=== PATIENT | female | born 1995 | race Caucasian/White ===

== ENCOUNTER → 2020-01-05 09:45 | Outpatient (CLI) | payer OTHER, MEDICAID, SELFPAY ==
--- NOTE | 2020-01-05 09:48 | DI.US.S_ITS ---
PROCEDURE: US OB >= 14 WEEKS FETUS INDICATIONS: ANATOMY OUTSIDE/PRIOR DATING DATA: Last menstrual period (LMP): 08/22/19. LMP-based estimated date of delivery (DEION): 05/29/20. First dating scan (date and location): 10/27/19. Estimated date of delivery (DEION) from first dating scan: 06/06/20. TECHNIQUE: Real-time scanning was performed of the fetus, with image documentation and biometric measurements. COMPARISON: [facility], , OB <= 14 WEEKS FETUS, 11/09/2019, 8:26. FINDINGS: General: A single live intrauterine gestation is present. Presentation: Breech. Placenta: Placental position is anterior, without previa. However, the placenta is low-lying, with placental edge seen 2.1 cm from the internal cervical os. Amniotic fluid index: 12.7 cm, normal range is 5-24 cm. heart rate: 149 beats per minute. Maternal cervical canal: 3.4 cm long. Normal lower limit is 2.5 cm. biometrics: Biparietal diameter: 4.2 cm equals 18 weeks 5 days Head circumference: 15.4 cm equals 18 weeks 2 days Abdominal circumference: 12.2 cm equals 18 weeks 2 days Femur length: 2.5 cm equals 17 weeks 5 days Estimated gestational age from initial scan: 18 weeks 1 day Composite gestational age from present scan: 18 weeks 2 days Estimated weight and percentile: 221 g, 38 percentile Measurement variability for biometric dating: +/- 7 days from 14 weeks to 15 weeks 6 days gestation, +/- 10 days from 16 weeks to 21 weeks 6 days gestation, +/- 2 weeks from 22 weeks to 27 weeks 6 days gestation, +/- 3 weeks for 28 weeks gestation or later. weight reference: 4500 g or EFW >90/95% is considered macrosomia or large for gestational age. EFW <10% is small for gestational age. EFW 5% or less is considered intra-uterine growth restriction. Anatomic survey: Neuro: Ventricles are non-dilated at less than 10 mm. Cisterna magna is normal at 3-11 mm. Cerebellum is normal in size and morphology. Nuchal skin fold: Normal at less than 6 mm between 14-21 weeks gestational age. Face: Thefetal nose and lips are not well-seen. Spine: No evidence for spina bifida. Heart: 4-chambered heart is present, with normal ventricular outflow tracts. Diaphragm: Diaphragm is intact. Stomach: Left-sided stomach is present. Kidneys: No hydronephrosis. Normal is less than 5 mm in 2nd trimester, less than 7 mm in 3rd trimester. Cord: 3-vessel cord has orthotopic insertion. Bladder: Normal in size. Extremities: All 4 extremities identified. IMPRESSION: A single live intrauterine is seen. No significant discrepancy is found between the estimated gestational age based on these images and the estimated gestational age based upon the given prior dating. The nose and lips are not well-seen. No anatomic abnormalities are identified. Low-lying placenta, without previa, with the inferior aspect of the placenta is seen 2.1 cm from the internal cervical os. Dictated by: Danny Baum M.D. on 01/05/2020 at 10:14 Approved by: Danny Baum M.D. on 01/05/2020 at 10:17
== END ==
PROVIDERS: PCP Family Medicine; Referring Provider Obstetrics & Gynecology; Visit Provider Obstetrics & Gynecology
DX: Z36.89 Encounter for other specified antenatal screening (principal); Z3A.18 18 weeks gestation of pregnancy
CPT/HCPCS: 76811

== ENCOUNTER → 2020-01-06 09:03 | Outpatient (CLI) | payer OTHER, MEDICAID, SELFPAY ==
[2020-01-08 20:39] LABS: AFP, Serum 55.8 ng/mL (.); Calc Gestational Age Ultrasound (.); Estriol, Free 2.82 ng/mL (.); Inhibin A, Dimeric 147.64 pg/mL (.); Inhibin A, MoM 0.83 (.); Maternal Ethnicity Caucasian (.); Maternal Weight 137 lbs (.); Number of Fetuses No (.); OSBR Risk 1 IN 7137 (.); Results Report (.); Test Results *Screen Negative* (.); hCG, Serum 20573 mIU/mL (.)
== END ==
PROVIDERS: PCP Family Medicine; Referring Provider Family Medicine; Visit Provider Obstetrics & Gynecology
DX: Z34.02 Encounter for supervision of normal first pregnancy, second trimester (principal); Z3A.18 18 weeks gestation of pregnancy
CPT/HCPCS: 36415; 82105; 82677; 84702; 86336

== ENCOUNTER → 2020-01-20 07:15 | Outpatient (CLI) | payer OTHER, MEDICAID, SELFPAY ==
--- NOTE | 2020-01-20 07:17 | DI.US.S_ITS ---
PROCEDURE: US OB FOLLOW UP INDICATIONS: RE-EVALUATE FACE OUTSIDE/PRIOR DATING DATA: Last menstrual period (LMP): 08/22/19. LMP-based estimated date of delivery (DEION): 05/29/20. First dating scan (date and location): 10/27/19. Estimated date of delivery (DEION) from first dating scan: 06/06/20. TECHNIQUE: Real-time scanning was performed of the fetus, with image documentation. Endovaginal scanning: Performed COMPARISON: None. FINDINGS: A single living intrauterine gestation is present. Presentation: Breech Placenta: Placental position is anterior, without previa. Amniotic fluid index: 15.3 cm, normal range is 5-24 cm. heart rate: 152 beats per minute. Maternal cervical canal: 4.5 cm long. Normal lower limit is 2.5 cm. Estimated gestational age from initial scan: 20 weeks 2 days. face and profile normal. IMPRESSION: Normal face. Dictated by: Anny Flood MD, PhD on 01/22/2020 at 11:20 Approved by: Anny Flood MD, PhD on 01/22/2020 at 11:22
== END ==
PROVIDERS: PCP Family Medicine; Referring Provider Obstetrics & Gynecology; Visit Provider Obstetrics & Gynecology
DX: Z36.2 Encounter for other antenatal screening follow-up (principal); Z3A.20 20 weeks gestation of pregnancy
CPT/HCPCS: 76816

== ENCOUNTER → 2020-03-02 08:19 | Outpatient (CLI) | payer OTHER, SELFPAY ==
[2020-03-02 10:09] LABS: Hematocrit 29.3 % (36-46); Hemoglobin 10.2 g/dL (12.0-16.0)
[2020-03-02 10:47] LABS: GTT (PREG) 1 Hour PP 50gm Dose 99 mg/dL (76-139)
== END ==
PROVIDERS: PCP Family Medicine; Referring Provider Obstetrics & Gynecology; Visit Provider Obstetrics & Gynecology
DX: Z34.02 Encounter for supervision of normal first pregnancy, second trimester (principal); Z3A.22 22 weeks gestation of pregnancy
CPT/HCPCS: 36415; 82950; 85014; 85018; 86850

== ENCOUNTER → 2020-05-16 09:43 | Outpatient (CLI) | payer OTHER, MEDICAID, SELFPAY ==
[2020-05-16 14:40] LABS: Strep Grp B PCR NEG for Grp B Strep
== END ==
PROVIDERS: PCP Family Medicine; Visit Provider Obstetrics & Gynecology
DX: Z34.03 Encounter for supervision of normal first pregnancy, third trimester (principal); Z3A.28 28 weeks gestation of pregnancy
CPT/HCPCS: 87653

== ENCOUNTER 2020-06-06 08:23 | Outpatient (CLI) | payer OTHER, MEDICAID, SELFPAY ==
--- NOTE | 2020-06-06 09:05 | PM.OBTRLD ---
Visit Information Visit Information Date of evaluation: 06/06/20 Primary OB Provider: Celina Ko Reason for Evaluation: Yes non-stress test Comments/Additional reasons for admission: This patient is a 24yo @40+0 sent for an NST for postdates testing. Vital Signs Vital Signs: 130/85, HR 88 PFSH Medical History Acute low back pain without sciatica (Acute) Anxiety (Acute) Clavicle fracture (Acute) Leg fracture, left (Acute) Lumbar region somatic dysfunction (Acute) Pelvic somatic dysfunction (Acute) Right arm fracture (Acute) Sacral region somatic dysfunction (Acute) Surgical History [place] teeth extracted (Acute) Family History Mother No problems noted. Father Tonsillar cancer Grandfather No problems noted. Grandmother Type 2 diabetes mellitus Grandfather Unknown whether patient has any health problems Grandmother Hypertension Family/Other Infertility Social History marital status: unmarried,living together pets and animals: Yes (Dog and FOB has Cat (aware)) education level: college occupational status: employed current occupational exposures/hazards: No special regino needs: No Smoking Status: Never smoker second hand exposure: No alcohol intake: former substance use type: does not use Exam Const General: cooperative, healthy appearing and comfortable Evaluation Evaluation Baseline heart rate: 145 Variability: Moderate (11-25) monitor accelerations: Present monitor decelerations: Absent Category of Tracing: Reactive Diagnosis, Plan/Disposition Plan/Disposition Plan: Home, scheduled precautions and follow up for NST/BPP later this week. OB Disposition: home
== END 2020-06-06 09:10 | disposition home or self-care (01) ==
LOC: LABOR 09:03 → OB 06-07 15:03
PROVIDERS: PCP Family Medicine; Referring Provider Obstetrics & Gynecology; Visit Provider Obstetrics & Gynecology
DX: O48.0 Post-term pregnancy (principal); Z3A.40 40 weeks gestation of pregnancy
CPT/HCPCS: 59025; G0378; G0379

== ENCOUNTER 2020-06-09 15:15 | Outpatient (CLI) | payer OTHER, MEDICAID, SELFPAY | END 2020-06-09 15:40 | disposition home or self-care (01) | LOC: OB 06-13 09:40 | PROVIDERS: PCP Family Medicine; Referring Provider Obstetrics & Gynecology; Visit Provider Obstetrics & Gynecology | DX: O48.0 Post-term pregnancy (principal); Z3A.40 40 weeks gestation of pregnancy | CPT/HCPCS: 59025; G0378; G0379 ==

== ENCOUNTER → 2020-06-10 08:09 | Outpatient (CLI) | payer OTHER, MEDICAID, SELFPAY ==
[2020-06-13 10:02] LABS: COVID19 Sendout Not Detected (Not Detect)
== END ==
PROVIDERS: PCP Family Medicine; Visit Provider Nurse Practitioner
DX: Z11.59 Encounter for screening for other viral diseases (principal)
CPT/HCPCS: 87635

== ENCOUNTER 2020-06-13 18:25 | Inpatient (IN) | payer OTHER, MEDICAID, SELFPAY ==
[2020-06-13 18:55] VITALS: BP 134/89
[2020-06-14 00:18] LABS: Add Manual Diff / Slide Review NO; Basophils Absolute Auto 0 /uL (0-100); Basophils Percent Auto 0.1 % (0-2); Eosinophils Absolute Auto 0 /uL (0-450); Eosinophils Percent Auto 0.2 % (2-4); Hematocrit 32.1 % (36-46); Hemoglobin 11.1 g/dL (12.0-16.0); Lymphocytes Absolute Auto 3100 /uL (1100-4500); Lymphocytes Percent Auto 25.7 % (25-40); Mean Corpuscular HGB Conc 34.7 % (30-36); Mean Corpuscular Hemoglobin 30.7 PG (26-34); Mean Corpuscular Volume 88.4 fL (80-100); Monocytes Absolute Auto 600 /uL (0-900); Monocytes Percent Auto 5.2 % (3-14); Neutrophils Absolute Auto 8300 /uL (1500-7000); Neutrophils Percent Auto 68.8 % (50-75); Platelet Count 190 X10^3/uL (150-400); Red Blood Cell Count 3.63 X10^6/uL (4.0-5.2); Red Cell Distribution Width 13.3 % (11.6-14.8)
[2020-06-14] MEDS: DINOPROSTONE VAG (CERVIDIL) 10 MG VAG (01:10)
--- NOTE | 2020-06-14 09:39 | P.HPOB_ITS ---
OB HPI Date/Time Date of admission: 06/13/20 Date Patient Seen: 06/14/20 Time Patient Seen: 08:30 History of Present Condition Chief complaint: : 1 Para: 0 Estimated Date of Delivery: 06/06/20 Estimated Gestational Age (weeks): 41 Narrative: Cassy Urena is a 24 year old @41+1 admitted for postdates induction. The patient was admitted overnight for cervical ripening with cervidil, and was transitioned to pitocin when she achieved a favorable cervix this AM. Her has been uncomplicated. Of note, the patient is RH negative, but reports that paternity is certain and the FOB's blood type is certain, and refused rhogam. Indications Indication for induction OB: post dates History of Present care: good care, initiated at week # (8) and number of visits (16) Dating criteria: LMP confirmed by 1st trimester US Ultrasounds: normal 1st trimester US and normal mid trimester US Obstetrical complications: none Medical complications: none Preadmission Labs Blood type: A (-) negative -: Antibody screen: negative, GBS status: negative, HBsAG: negative, HIV: negative and RPR/VDLR: negative -: Chlamydia screen: not detected and Gonorrhea screen: not detected -: Rubella: immune and Varicella: immune Quad screen: Normal 1 hr GTT: 99 Evaluation Evaluation Baseline heart rate: 135 Variability: Moderate (11-25) monitor accelerations: Present monitor decelerations: Absent Category of Tracing: Reactive Cervical dilation (cm): 3 Cervical effacement (%): 75 station: -2 Laboratory results: Laboratory Tests 06/13/20 06/13/20 23:50 23:50 WBC 12.0 H RBC 3.63 L Hgb 11.1 L Hct 32.1 L MCV 88.4 MCH 30.7 MCHC 34.7 RDW 13.3 Plt Count 190 Neut % (Auto) 68.8 Lymph % (Auto) 25.7 [place] % (Auto) 5.2 Eos % (Auto) 0.2 L Baso % (Auto) 0.1 Neut # (Auto) 8300 H Lymph # (Auto) 3100 [place] # (Auto) 600 Eos # (Auto) 0 Baso # (Auto) 0 Blood Type A Negative Antibody Screen Negative [facility] Medical History Acute low back pain without sciatica (Acute) Anxiety (Acute) Clavicle fracture (Acute) Leg fracture, left (Acute) Lumbar region somatic dysfunction (Acute) Pelvic somatic dysfunction (Acute) Right arm fracture (Acute) Sacral region somatic dysfunction (Acute) Surgical History [place] teeth extracted (Acute) Family History Mother No problems noted. Father Tonsillar cancer Grandfather No problems noted. Grandmother Type 2 diabetes mellitus Grandfather Unknown whether patient has any health problems Grandmother Hypertension Family/Other Infertility Social History marital status: unmarried,living together pets and animals: Yes (Dog and FOB has Cat (aware)) education level: college occupational status: employed current occupational exposures/hazards: No special regino needs: No Smoking Status: Never smoker second hand exposure: No alcohol intake: former substance use type: does not use Meds Home Medications and Allergies Home Medications Medication Instructions Recorded Confirmed Type prenat.vits,jens,kpw-vcst-nanus 1 tab PO DAILY 11/02/19 06/13/20 History Double Electric breast Pump and #1 each 04/18/20 05/16/20 Rx Supplies Slow Fe 1 tab PO DAILY 06/06/20 06/06/20 History Allergies Allergy/AdvReac Type Severity Reaction Status Date / Time Sulfa (Sulfonamide Allergy Hives Verified 06/10/20 08:38 Antibiotics) Review of Systems Constitutional Constitutional: Reports system reviewed and no additional complaints, except as documented Cardiovascular Cardiovascular: Reports system reviewed and no additional complaints, except as documented Respiratory Respiratory: Reports system reviewed and no additional complaints, except as documented Gastrointestinal Gastrointestinal: Reports system reviewed and no additional complaints, except as documented Genitourinary Genitourinary: Reports system reviewed and no additional complaints, except as documented Neurologic Neurologic: Reports system reviewed and no additional complaints, except as documented Exam Vital Signs (past 8 hours): 135/77, HR 77 Const General: cooperative, healthy appearing and comfortable GI Palpation: soft and No tender External Female Exam: normal external appearance Skin General: no rashes or lesions noted Objective Labs Result Diagrams: 06/13/20 23:50 Labs: Laboratory Results - last 24 hr 06/13/20 06/13/20 23:50 23:50 WBC 12.0 H RBC 3.63 L Hgb 11.1 L Hct 32.1 L MCV 88.4 MCH 30.7 MCHC 34.7 RDW 13.3 Plt Count 190 Neut % (Auto) 68.8 Lymph % (Auto) 25.7 [place] % (Auto) 5.2 Eos % (Auto) 0.2 L Baso % (Auto) 0.1 Neut # (Auto) 8300 H Lymph # (Auto) 3100 [place] # (Auto) 600 Eos # (Auto) 0 Baso # (Auto) 0 Blood Type A Negative Antibody Screen Negative Assessment and Plan Assessment and Plan Assessment and Plan narrative: This patient is admitted for induction of labor for postdates. She will be induced with pitocin per the usual protocol. - pit per protocol - cEFM, toco - AROM when feasible - epidural on demand
[2020-06-14] MEDS: LACTATED RINGERS 1,000 ML 100 ML IV ×2 (10:30→13:24)
[2020-06-14] MEDS: OXYTOCIN PREMIX 30 UNIT/500 ML PLAST..BAG IV (10:35)
--- NOTE | 2020-06-14 14:04 | PM.OBPNLAB ---
Date/Time Date Patient Seen: 06/14/20 Time Patient Seen: 13:30 Pain Control Pain control: epidural Pelvic Exam Dilation (cm): 4 Effacement (%): 100 station: -1 Amniotic membrane status: Ruptured (AROM, clear) Contractions Pitocin rate (mU/min): 9 Contraction frequency (min): 3 Contraction duration (min): 1 Contraction pattern: Regular Status status: Category l Heart Rate Baseline: 135 Monitor Accelerations: Present Monitor Decelerations: Absent Monitor Variability: Moderate Comments: VSS Assessment and Plan Assessment: induction ongoing Plan: continuous present management
--- NOTE | 2020-06-14 17:53 | PM.OBPNLAB ---
Date/Time Date Patient Seen: 06/14/20 Time Patient Seen: 17:53 Pain Control Pain control: epidural Pelvic Exam Dilation (cm): 8 Effacement (%): 100 station: -1 Amniotic membrane status: Ruptured (AROM, clear) Comments: edematous anterior lip Contractions Pitocin rate (mU/min): 10 Contraction frequency (min): 2 Contraction pattern: Regular Status status: Category l Heart Rate Baseline: 145 Monitor Accelerations: Present Monitor Decelerations: Absent Monitor Variability: Moderate Assessment and Plan Assessment: induction ongoing Plan: continuous present management
--- NOTE | 2020-06-14 21:21 | PM.OBPRVD ---
Labor & Delivery Delivery date: 06/14/20 Intrapartal events: Acceleration and Deceleration Cervical ripening method: per Cervidil protocol Induction method: per pitocin protocol Delivery augmentation: rupture of membranes Delivery monitor: external FHT and external uterine Route of delivery: L&D Laceration Description: Perineal - 2nd Degree Delivery repair: vicryl Estimated blood loss (mL): 400 Anesthesia type: Epidural Narrative: This patient is a [id number] who presented for induction of labor for postdates. She underwent cervical ripening with cervidil and induction with pitocin. She progressed to fully dilated 6 hours after AROM, and was delivered of a healthy baby girl after a 1 hour second stage. There was no nuchal cord, and the shoulders delivered with ease. The placenta delivered spontaneously and intact shortly thereafter, with a 3 vessel cord. A stellate but 2nd degree perineal laceration was repaired with 3-0 vicryl in the usual fashion. The patient had persistent moderate lochia in the setting of lower uterine segment atony, and received 1000mcg of rectal cytotec. There were no other intrapartum or immediate complications. Apgars were 8+9, weight 8#7.9 oz. [place] Baby 1: gender: Female Presentation: vertex position: Right Occiput Anterior cord vessel description: 3 Vessels score (1 min): 8 score (5 min): 9 Plan for aftercare: Routine care.
[2020-06-15] MEDS: DERMOPLAST SPRAY 20% 60 ML 1 SPRAY TOP (00:45)
[2020-06-15] MEDS: LANOLIN OINT 7 GM 1 APPLIC TOP ×2 (00:46→13:17)
[2020-06-15] MEDS: IBUPROFEN 600 MG TABLET PO ×3 (00:46→13:17)
[2020-06-15] MEDS: miSOPROStoL 200 MCG TABLET 1000 MCG PR (07:43)
--- NOTE | 2020-06-15 09:00 | PM.OBDS.1 ---
Discharge Providers Provider Date of admission: 06/13/20 18:25 Discharge Date: 06/15/20 Primary care physician: Maury Sarah MD Consults: 06/15/20 21:20 Consult to Medical Office Professional Instructor Routine Comment: Discharge provider: Celina Ko MD Summary Hospital Course Date Patient Seen: 06/15/20 Time Patient Seen: 09:00 Procedures: Hospital Course: This patient presented for induction of labor for postdates. She underwent cervical ripening with cervidil and induction with pitocin, and progressed to fully dilated. After a 1 hour 2nd stage, she was delivered of a healthy baby girl, weight 8#8, without complications. Her course was uncomplicated, and she was discharged on PPD#1. Peripartum Data Infant Delivery Method: Natural Vaginal Laceration Description: Perineal - 2nd Degree Procedures: complications: none [place] 1: Gender: Female Disposition of : home Status at Discharge Cognitive/behavioral status at discharge: oriented Functional status at discharge: independent ambulation Overall status at discharge: patient is progressing back to baseline Time Spent with Patient Time attestation: Total time spent providing and/or coordinating discharge services: Time spent: Less than 30 minutes Objective Labs Result Diagrams: 06/13/20 23:50 Exam Vital Signs (past 8 hours): 124/83, HR 71 Narrative Exam Narrative: Patient recovering well this AM, ambulating, voiding, passing flatus, good pain control, tolerating PO, moderate lochia. Denies FERNANDEZ, visual changes, chest pain, SOB, RUQ pain. Const General: cooperative, healthy appearing and comfortable Resp Effort & Inspection: normal respiratory effort Auscultation: clear to auscultation bilaterally Cardio Rate: regular rate Rhythm: regular rhythm GI Palpation: soft and No tender Other: fundus firm, well below u External Female Exam: normal external appearance Extrem General: normal to inspection Discharge Plan Discharge Plan Patient Disposition: Home Discharge orders & Medications Prescriptions: Continued (DME) Double Electric breast Pump and Supplies See Rx Instructions .ROUTE .MEDSUPPLY Qty: 1 RF: 0 prenat.vits,jens,qcg-wdcp-aqmcp Tablet 1 tab PO DAILY RF: 0 Slow Fe 1 tab PO DAILY RF: 0 Follow up/Referrals: Celina Ko MD [Physician] - 6 Weeks Maury Sarah MD [Primary Care Provider] - Diet/Activity/Treatments Diet: Regular Activity: Nothing in the vagina for 6 weeks. Avoid heavy lifting for 6 weeks. If you develop increasing bleeding, fevers, chills, nausea, vomiting, headaches, visual changes, or any other symptoms, call or come to the ED. Skin/Wound/Dressing Care Report to your healthcare provider any signs of infection, such as:: chills, fever, night sweats, increased pain, unusual drainage and unusual redness Visit Report/Discharge Packet Instructions: DI for Labor and Delivery, Vaginal Discharge Data Primary Care Provider: Maury Sarah
[2020-06-15] MEDS: MEASLES,MUMPS,RUBELLA VACC/PF 0.5 ML VIAL SUBCUT (16:12)
[2020-06-15 16:57] VITALS: BP 122/73; PULSE 83; RESP 14; TEMP 36.8
== END 2020-06-15 18:10 | disposition home or self-care (01) | DRG 560 ==
PROVIDERS: Admitting Provider Obstetrics & Gynecology; PCP Family Medicine; Referring Provider Obstetrics & Gynecology; Visit Provider Obstetrics & Gynecology
DX: O48.0 Post-term pregnancy (principal); O70.1 Second degree perineal laceration during delivery; Z3A.41 41 weeks gestation of pregnancy; Z37.0 Single live birth
CPT/HCPCS: 01967; 59050; 59409; 85025; 86850; 86900; 86901; G0379; J2590; S0191

== ENCOUNTER → 2021-07-12 09:48 | Outpatient (CLI) | payer OTHER, MEDICAID, SELFPAY ==
--- NOTE | 2021-07-12 09:49 | DI.US.S_ITS ---
PROCEDURE: US PELVIC COMPLETE INDICATIONS: PELVIC PAIN TECHNIQUE: Real-time scanning was performed of the pelvic organs, with image documentation. Additional endovaginal scanning was necessary due to incomplete visualization of the adnexal and endometrial structures by transabdominal scanning. COMPARISON: None. FINDINGS: Uterus: Uterus is normal in size at 6.8 x 4.9 x 3.8 cm. The endometrium measures 5.1 mm in combined thickness. Ovaries: Right ovary measures 4.5 x 2.3 x 2.1 cm. Left ovary measures 2.9 x 2.5 x 2.0 cm. Multiple small bilateral physiologic cysts. Intra-ovarian flow noted bilaterally by duplex. No abnormal adnexal masses. Other: No pathologic free abdominal or pelvic fluid. IMPRESSION: Unremarkable pelvic ultrasound. Dictated by: Bradly Ortega M.D. on 07/12/2021 at 14:24 Approved by: Bradly Ortega M.D. on 07/12/2021 at 14:26
== END ==
PROVIDERS: Referring Provider Specialist; Visit Provider Specialist
DX: R10.2 Pelvic and perineal pain (principal)
CPT/HCPCS: 76830; 76856

== ENCOUNTER → 2021-08-18 16:30 | Outpatient (CLI) | payer OTHER, MEDICAID, SELFPAY ==
[2021-08-18 18:38] LABS: Thyroid Stimulating Hormone 1.29 uIU/mL (0.47-4.68)
== END ==
PROVIDERS: Referring Provider Obstetrics & Gynecology; Visit Provider Obstetrics & Gynecology
DX: N92.0 Excessive and frequent menstruation with regular cycle (principal)
CPT/HCPCS: 36415; 84439; 84443

== ENCOUNTER → 2023-02-05 10:21 | Outpatient (CLI) | payer OTHER, MEDICAID, SELFPAY ==
--- NOTE | 2023-02-05 | DI.US.S_ITS ---
PROCEDURE: US OB >= 14 WEEKS FETUS INDICATIONS: 20WK ANATOMY SCAN OUTSIDE/PRIOR DATING DATA: Last menstrual period (LMP): September 30, 2022. LMP-based estimated date of delivery (DEION): June 27, 2023. TECHNIQUE: Real-time scanning was performed of the fetus, with image documentation and biometric measurements. COMPARISON: [facility], US, OB >= 14 WEEKS FETUS, 06/09/2020, 14:55. FINDINGS: General: A single living intrauterine gestation is present. Presentation: Breech. Placenta: Placental position is anterior, without previa. Amniotic fluid index: 15.8 cm, normal range is 5-24 cm. Single deepest vertical pocket is 4.3 cm. heart rate: 143 beats per minute. Maternal cervical canal: 4.0 cm long. Normal lower limit is 2.5 cm. biometrics: Biparietal diameter: 4.5 cm, 19 weeks, 4 days Head circumference: 19.3 cm, 19 weeks, 6 days Abdominal circumference: 15.2 cm, 20 weeks, 3 days Femur length: 3.0 cm, 19 weeks, 2 days Clinically estimated gestational age: 19 weeks, 5 days Composite gestational age from present scan: 19 weeks, 6 days Estimated weight and percentile: 316 g, 53% Anatomic survey: Neuro: Ventricles are non-dilated at less than 10 mm. Cisterna magna is normal at 3-11 mm. Cerebellum is normal in size and morphology. Nuchal skin fold: Normal at less than 6 mm between 14-21 weeks gestational age. Face: Nose and lips have a normal sonographic appearance. The facial profile is not visualized. Spine: No evidence for spina bifida. Heart: 4-chambered heart is present, with normal ventricular outflow tracts. Diaphragm: Diaphragm is intact. Stomach: Left-sided stomach is present. Kidneys: No hydronephrosis. Normal is less than 5 mm in 2nd trimester, less than 7 mm in 3rd trimester. Cord: 3-vessel cord has orthotopic insertion. Bladder: Normal in size. Extremities: All 4 extremities identified. IMPRESSION: 1. Single live intrauterine gestation in breech position with a composite gestational age of 19 weeks, 6 days which is concordant with dates by initial scan. 2. profile not well visualized due to lie. No other sonographic anatomic abnormalities. We strive to produce accurate, complete, and clear reports of imaging services. To assist us in improving patient care, this report was composed using standard report templates and voice recognition software. Therefore, it may contain abnormal punctuation, insertions and/or omissions. Occasional wrong-word or sound-alike substitutions may occur. Though we review the report and make efforts to correct it, we do recommend that the report be read carefully in proper context to recognize any text inaccuracies. Dictated by: Ariela Woody M.D. on 02/05/2023 at 14:02 Approved by: Ariela Woody M.D. on 02/05/2023 at 14:13
== END ==
PROVIDERS: Referring Provider Nurse Practitioner Obstetrics & Gynecology; Visit Provider Nurse Practitioner Obstetrics & Gynecology
DX: Z34.92 Encounter for supervision of normal pregnancy, unspecified, second trimester (principal); Z3A.20 20 weeks gestation of pregnancy
CPT/HCPCS: 76811

== ENCOUNTER → 2023-02-19 10:20 | Outpatient (CLI) | payer OTHER, MEDICAID, SELFPAY ==
--- NOTE | 2023-02-19 | DI.US.S_ITS ---
PROCEDURE: US OB FOLLOW UP INDICATIONS: FOLLOW UP PROFILE OUTSIDE/PRIOR DATING DATA: Last menstrual period (LMP): 09/20/22. LMP-based estimated date of delivery (DEION): 06/27/23. First dating scan (date and location): 02/05/23. Estimated date of delivery (DEION) from first dating scan: 06/26/23. The calculations are made using the working DEION of 06/27/23. TECHNIQUE: Real-time scanning was performed of the fetus, with image documentation. Endovaginal scanning: Not performed COMPARISON: [facility], OB >= 14 WEEKS FETUS, 02/05/2023, 10:30. [facility], OB FOLLOW UP, 01/20/2020, 7:32. FINDINGS: A single living intrauterine gestation is present. Presentation: Variable, spine up. Placenta: Placental position is anterior, without previa. Amniotic fluid index: 16.6 cm, normal range is 5-24 cm. Single deepest vertical pocket is 6.1 cm. heart rate: 139 beats per minute. Maternal cervical canal: Closed and 3.4 cm long. Normal lower limit is 2.5 cm. Clinically estimated gestational age: 21 weeks five days facial profile was again not seen secondary to position. IMPRESSION: 1. Single living intrauterine in spine up position. 2. There is lack of good acoustic window in the facial profile of the fetus was again not seen. Consider follow-up. Dictated by: Roselyn Sapp M.D. on 02/19/2023 at 14:45 Approved by: Roselyn Sapp M.D. on 02/19/2023 at 14:48
== END ==
PROVIDERS: Referring Provider Nurse Practitioner Obstetrics & Gynecology; Visit Provider Nurse Practitioner Obstetrics & Gynecology
DX: Z36.2 Encounter for other antenatal screening follow-up (principal); O35.9XX0 Maternal care for (suspected) fetal abnormality and damage, unspecified, not applicable or unspecified; Z3A.21 21 weeks gestation of pregnancy
CPT/HCPCS: 76816

== ENCOUNTER → 2023-02-28 08:00 | Outpatient (CLI) | payer OTHER, MEDICAID, SELFPAY ==
--- NOTE | 2023-02-28 | DI.US.S_ITS ---
PROCEDURE: US OB FOLLOW UP INDICATIONS: FOLLOW UP PROFILE NOT WELL SEEN ON PRIOR EXAMS OUTSIDE/PRIOR DATING DATA: Last menstrual period (LMP): 09/30/2022. LMP-based estimated date of delivery (DEION): 06/27/2023. First dating scan (date and location): 02/05/2023. Estimated date of delivery (DEION) from first dating scan: 06/26/2023. The calculations are made using the clinical DEION of 06/27/2023. TECHNIQUE: Real-time scanning was performed of the fetus, with image documentation and biometric measurements. Endovaginal scanning: Not performed. COMPARISON: [facility], OB FOLLOW UP, 02/19/2023, 10:42. FINDINGS: General: A single living intrauterine gestation is present. Presentation: Vertex. Placenta: Placental position is anterior , without previa. Amniotic fluid index: 14.9 cm, normal range is 5-24 cm. Single deepest vertical pocket is 4.2 cm. heart rate: 147 beats per minute. Maternal cervical canal: 3.3 cm long. Normal lower limit is 2.5 cm. Anatomic survey: Nose and lips, facial profile are normal. IMPRESSION: Single living intrauterine at 23 weeks 0 days, DEION of 06/27/2023. Normal facial profile on today's exam. We strive to produce accurate, complete, and clear reports of imaging services. To assist us in improving patient care, this report was composed using standard report templates and voice recognition software. Therefore, it may contain abnormal punctuation, insertions and/or omissions. Occasional wrong-word or sound-alike substitutions may occur. Though we review the report and make efforts to correct it, we do recommend that the report be read carefully in proper context to recognize any text inaccuracies. Dictated by: Osmani Patton M.D. on 02/28/2023 at 15:58 Approved by: Osmani Patton M.D. on 02/28/2023 at 16:02
== END ==
PROVIDERS: PCP Nurse Practitioner Obstetrics & Gynecology; Referring Provider Nurse Practitioner Obstetrics & Gynecology; Visit Provider Nurse Practitioner Obstetrics & Gynecology
DX: Z3A.23 23 weeks gestation of pregnancy; Z36.2 Encounter for other antenatal screening follow-up
CPT/HCPCS: 76816

== ENCOUNTER → 2023-04-26 16:13 | Outpatient (CLI) | payer OTHER, MEDICAID, SELFPAY ==
[2023-04-26 17:36] LABS: HEMOLYSIS < 15 (0-50); Iron 215 ug/dL (37-170)
[2023-04-26 17:47] LABS: Percent Iron Saturation 41 % (15-50); Total Iron Binding Capacity 520 ug/dL (265-497); Transferrin 408 mg/dL (206-381)
== END ==
PROVIDERS: PCP Family Medicine; Referring Provider Obstetrics & Gynecology; Visit Provider Obstetrics & Gynecology
DX: O99.019 Anemia complicating pregnancy, unspecified trimester (principal); Z3A.00 Weeks of gestation of pregnancy not specified
CPT/HCPCS: 36415; 83540; 83550; 85045

== ENCOUNTER → 2023-05-29 11:59 | Outpatient (CLI) | payer OTHER, MEDICAID, SELFPAY ==
[2023-05-30 13:39] LABS: Strep Grp B PCR NEG for Grp B Strep
== END ==
PROVIDERS: PCP Family Medicine; Visit Provider Specialist
DX: Z34.83 Encounter for supervision of other normal pregnancy, third trimester (principal); Z3A.35 35 weeks gestation of pregnancy
CPT/HCPCS: 87653

== ENCOUNTER 2023-07-01 11:28 | Outpatient (CLI) | payer OTHER, MEDICAID, SELFPAY | END 2023-07-01 12:35 | disposition home or self-care (01) | LOC: LABOR 11:46 → OB 07-02 12:09 | PROVIDERS: PCP Family Medicine; Referring Provider Obstetrics & Gynecology; Visit Provider Obstetrics & Gynecology | DX: O48.0 Post-term pregnancy (principal); O47.1 False labor at or after 37 completed weeks of gestation; Z3A.40 40 weeks gestation of pregnancy | CPT/HCPCS: 59025; G0378; G0379 ==

== ENCOUNTER 2023-07-03 07:02 | Inpatient (IN) | payer OTHER, MEDICAID, SELFPAY ==
[2023-07-03 08:03] LABS: Add Manual Diff / Slide Review NO; Basophils Absolute Auto 0 /uL (0-100); Basophils Percent Auto 0.3 % (0-2); Eosinophils Absolute Auto 0 /uL (0-450); Eosinophils Percent Auto 0.4 % (2-4); Hematocrit 31.1 % (36-46); Hemoglobin 10.7 g/dL (12.0-16.0); Lymphocytes Absolute Auto 2800 /uL (1100-4500); Mean Corpuscular HGB Conc 34.4 % (30-36); Mean Corpuscular Hemoglobin 29.6 PG (26-34); Mean Corpuscular Volume 86.2 fL (80-100); Monocytes Absolute Auto 600 /uL (0-900); Monocytes Percent Auto 5.6 % (3-14); Neutrophils Absolute Auto 6800 /uL (1500-7000); Neutrophils Percent Auto 66.7 % (50-75); Platelet Count 253 X10^3/uL (150-400); Red Blood Cell Count 3.61 X10^6/uL (4.0-5.2); Red Cell Distribution Width 14.2 % (11.6-14.8); White Blood Cell Count 10.2 X10^3/uL (4.5-11.0)
[2023-07-03 08:30] VITALS: BP 134/67
[2023-07-03 08:35] VITALS: BP 134/79
--- NOTE | 2023-07-03 09:00 | PM.OBHP.1 ---
OB HPI Date/Time Date of admission: 07/03/23 Date Patient Seen: 07/03/23 Time Patient Seen: 09:01 History of Present Condition Chief complaint: IUP, 40+6 wks EGA, Rh NEG, GBS NEG : 3 Para: 1 Estimated Date of Delivery: 06/27/23 Estimated Gestational Age (weeks): 40+6 Narrative: Cassy Urena is a 27 year old , admitted for induction due to post-dates now at 40+ 6 weeks gestational age. Her course has been uncomplicated with solid early dating and appropriate milestones throughout. She is Rh negative and has received RhoGAM at 28 weeks during this . She has a history of hemorrhage with her prior delivery. She is GBS negative. Indications Indication for induction OB: post dates History of Present care: good care Dating criteria: LMP confirmed by 1st trimester US Ultrasounds: normal 1st trimester US and normal mid trimester US Obstetrical complications: none Medical complications: none Preadmission Labs Blood type: A (-) negative -: Antibody screen: negative, GBS status: negative, HBsAG: negative, HIV: negative and RPR/VDLR: negative -: Chlamydia screen: not detected and Gonorrhea screen: not detected -: Rubella: immune and Varicella: immune HCT: 31.1 HCAB: negative PAP: Normal Quad screen: Normal (AFP testing negative) Cell-free DNA: Low risk female 1 hr GTT: 99 Prior (ies) History: x 1 complicated by PPH Evaluation Evaluation Baseline heart rate: 145 Variability: Moderate (11-25) monitor accelerations: Present Monitor Decelerations: Episodic and Variable Contraction Frequency (minutes): 5 Uterine Contraction Intensity: Mild Category of Tracing: Reactive Status: Category l Dilation (cm): 2 Effacement (%): 80 Dilation: 1-2 cm Effacement: >/=80% station: +1 Position of cervix: mid Consistency: soft Scanlon score: 10 PFSH Medical History (Updated 06/27/23 @ 13:20 by Jordan Mg MD) Heavy menstrual bleeding Pelvic somatic dysfunction Sacral region somatic dysfunction Lumbar region somatic dysfunction Acute low back pain without sciatica Anxiety Leg fracture, left Right arm fracture Clavicle fracture Surgical History [employer] teeth extracted Family History (Updated 04/24/23 @ 10:17 by Layla Mitchell RN) Mother No problems noted. 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) special regino needs: No travel history: over 6 months ago seatbelt use: always helmet use: Yes water heater temp set < 120 deg: Yes working smoke detector in home: Yes fire extinguisher in home: Yes carbon monox detector in home: Yes firearms in home: Yes firearms unloaded and locked: Yes do you feel safe at home: Yes Smoking Status: Never smoker second hand exposure: No alcohol intake: former substance use type: does not use during the past year weight has: other well-balanced diet: daily or most days daily servings fruits/ve or more times/day caffeine: Yes (1 cup coffee in AM ) Type(s) of exercise: walking and bicycling Meds Home Medications and Allergies Home Medications Medication Instructions Recorded Confirmed Type calcium carbonate 200 mg calcium 200 mg PO QID 04/24/23 07/01/23 History (500 mg) chewable tablet (Tums) carica papaya tab PO DAILY 04/24/23 07/01/23 History ferrous gluconate 225 mg (27 mg 225 mg PO DAILY 04/24/23 07/01/23 History iron) tablet (Fergon) vitamin-ferrous sulfate tab PO 04/24/23 07/01/23 History 27 mg iron-folic acid 0.8 mg tablet Allergies Allergy/AdvReac Type Severity Reaction Status Date / Time Sulfa (Sulfonamide Allergy Hives Verified 07/01/23 10:55 Antibiotics) OB Exam Vital signs Blood Pressure: 126/67 Pulse Rate: 87 Temperature: 97.9 F HENMT Head: normal to inspection, normocephalic and atraumatic Eyes General: appearance normal, both eyes and all related structures Resp Effort & Inspection: normal respiratory effort and able to speak in complete sentences Uterus Location (Fundal Height): 35 Presentation: vertex Estimated Weight (lbs): 7 Objective Labs 07/03/23 07:30 Labs: Laboratory Results - last 24 hr 07/03/23 07:30 WBC 10.2 RBC 3.61 L Hgb 10.7 L Hct 31.1 L MCV 86.2 MCH 29.6 MCHC 34.4 RDW 14.2 Plt Count 253 Neut % (Auto) 66.7 Lymph % (Auto) 27.0 [place] % (Auto) 5.6 Eos % (Auto) 0.4 L Baso % (Auto) 0.3 Neut # (Auto) 6800 Lymph # (Auto) 2800 [place] # (Auto) 600 Eos # (Auto) 0 Baso # (Auto) 0 Assessment and Plan Assessment and Plan Assessment and Plan narrative: ASSESSMENT 1. Intrauterine , 40+ 6 weeks gestational age 2. Post-dates 3. History of hemorrhage 4. Rh-negative status 5. GBS negative status 6. Anemia, chronic PLAN 1. Admit for induction and delivery 2. See admission orders
[2023-07-03 09:07] VITALS: BP 129/82; PULSE 81; RESP 16; TEMP 36.6
[2023-07-03 09:23] VITALS: BP 126/67; PULSE 87; TEMP 36.6
[2023-07-03] MEDS: OXYTOCIN PREMIX 30 UNIT/500 ML PLAST..BAG IV (09:36)
[2023-07-03 10:07] VITALS: BP 129/82; PULSE 81; RESP 16; TEMP 36.6
[2023-07-03] MEDS: LACTATED RINGERS 1,000 ML 100 ML IV (15:42)
--- NOTE | 2023-07-03 16:18 | PM.ANES.PR ---
Operative Date/Time/Diagnoses Date of procedure: 07/03/23 Time of procedure: 15:45 Pre-op diagnosis: Labor pain Post-op diagnosis: same Note Patient is a requesting labor epidural
--- NOTE | 2023-07-03 16:20 | PM.AN.REGBLK ---
Regional Block Pre-procedure Procedure: Continuous Lumbar Epidural for L&D Attending OB provider: Jordan Mg PMH/ROS narrative: Patient is a requesting labor epidural Hx: No personal or family history of anesthesia problems. Exam narrative: Mallampati: 2, good neck ROM, T.M. >3 cm ASA Class: II Labs: Hct 31.1 % (36-46) L 07/03/23 07:30 Plt Count 253 X10^3/uL (150-400) 07/03/23 07:30 Medications: Current Medications Generic Name Dose Route Start Last Admin Trade Name Freq PRN Reason Stop Dose Admin Calcium Carbonate 1,000 mg 07/03/23 07:49 Calcium Carbonate 500 Mg Tab PO Q4HR PRN Dyspepsia Carboprost Tromethamine 250 mcg 07/03/23 07:49 Carboprost 250 Mcg/Ml Ampul IM Q90M PRN Bleeding Diphenhydramine HCl 25 mg 07/03/23 16:17 Diphenhydramine 50 Mg/Ml Vial IV Q10M PRN Pruritis Fentanyl 50 mcg 07/03/23 07:49 Fentanyl 100 Mcg/2 Ml Inj IV Q1H PRN Pain, Moderate (4-6) Oxytocin/Lactated Ringer's 30 unit in 500 mls @ 200 mls/hr 07/03/23 07:49 Oxytocin Premix IV CONT PRN Bleeding Protocol Tranexamic Acid 1,000 mg/ 100 mls @ 200 mls/hr 07/03/23 07:49 Sodium Chloride IV NOW PRN Bleeding Oxytocin/Lactated Ringer's 30 unit in 500 mls @ 2 mls/hr 07/03/23 08:00 07/03/23 09:36 Oxytocin Premix IV 2 milliunit/min TITRATE DELANEY 2 mls/hr Administration Protocol 2 MILLIUNIT/MIN Lactated Ringer's 1,000 mls @ 100 mls/hr 07/03/23 08:00 07/03/23 15:42 Lactated Ringers IV 100 mls/hr CONT DELANEY Administration FENT 2MCG/ML BUPIV 0.1% EPI 200 mcg in 100 mls @ 6 mls/hr 07/03/23 16:30 Fentanyl/Bupiv/Ns 2mcg/Ml - 0.1% EPIDURAL CONT DELANEY Lidocaine HCl 20 ml 07/03/23 07:49 Lidocaine 1% 20 Ml INJ INTRA-OP PRN Post Delivery Methylergonovine Maleate 0.2 mg 07/03/23 07:49 Methylergonovine 0.2 Mg Tablet PO Q6HR PRN Heavy Bleeding Methylergonovine Maleate 0.2 mg 07/03/23 07:49 Methylergonovine 0.2 Mg/Ml Vial IM NOW PRN Bleeding Misoprostol 800 mcg 07/03/23 07:49 Misoprostol 200 Mcg Tablet AR NOW PRN Bleeding Misoprostol 400 mcg 07/03/23 07:49 Misoprostol 200 Mcg Tablet SL NOW PRN Bleeding Nalbuphine HCl 2.5 mg 07/03/23 16:17 Nalbuphine 20 Mg/Ml Ampul IV Q10M PRN Pruritis Naloxone HCl 0.2 mg 07/03/23 07:49 Naloxone 0.4 Mg/Ml Vial IV Q2MIN PRN Opiate Reversal Ondansetron HCl 4 mg 07/03/23 07:49 Ondansetron 4 Mg/2 Ml Inj IV Q4HR PRN Nausea And Vomiting Oxytocin 10 unit 07/03/23 07:49 Oxytocin 10 Unit/Ml Vial IM NOW PRN Bleeding Allergies: Allergies Allergy/AdvReac Type Severity Reaction Status Date / Time Sulfa (Sulfonamide Allergy Hives Verified 07/01/23 10:55 Antibiotics) Procedure Insertion date: 07/03/23 Insertion time: 15:45 Prep/Local: 1% lidocaine (Prep with Chloroprep) Interspace: L4-5 Patient position: sitting Needle: 18 gauge Gauri Loss of resistance with: saline JOANNE at (cm): 5 Catheter placed at SKIN (cm): 10 Catheter in SPACE (cm): 5 Sensory level: T10 Insertion: No CSF, No Blood, No Paresthesia with insertion, No Paresthesia with injection and No Test dose reaction Initial Medications TEST DOSE time: 15:58 TEST DOSE: 1.5% lidocaine with epinephrine 1:200k (mL): 5 BOLUS DOSE time: 16:00 BOLUS DOSE (mL): 5 BOLUS DOSE med: other (2% Lidocaine) Infusion INFUSION: 0.125% bupivacaine and with fentanyl 2 mcg/mL Initial rate (mL/hr): 12 Post-procedure Anesthesia time START: 15:45
--- NOTE | 2023-07-03 17:02 | PM.PNB.1 ---
Peripheral Nerve Block Note Vital signs VS: - 07/03/23 09:23 Temperature 97.9 F Pulse Rate 87 Blood Pressure 126/67
--- NOTE | 2023-07-03 17:18 | PM.EVENT ---
Event Note Date Patient Seen: 07/03/23 Time Patient Seen: 14:55 Event Note (Rapid Response, Code, or fall): Patient complains of some relief from epidural, but still with hotspot on LLQ. Pt lying on L side. Bolus of 8mL 0.25% Bupivacaine given via epidural catheter following negative aspiration.
--- NOTE | 2023-07-03 20:16 | PM.OBPRVD ---
Labor & Delivery Delivery date: 07/03/23 Intrapartal Events: None Cervical ripening method: none Induction method: per pitocin protocol Delivery monitor: external FHT and external uterine Route of delivery: Episiotomy description: None L&D Laceration Description: Perineal - 2nd Degree Estimated blood loss (mL): 175 Anesthesia Type: Epidural Complications: None Narrative: Following a very brief 2nd stage, the patient delivered spontaneously a viable female over an intact perineum. No shoulder dystocia or cord entanglement was noted. Skin to skin contact was initiated immediately and delayed cord clamping was performed. Once the umbilical cord was doubly clamped and cut, sample of cord blood was obtained for routine studies. The placenta was then delivered spontaneously with gentle cord traction and suprapubic countertraction. Inspection of the placenta showed it to be intact with a centrally inserting three-vessel cord. Intravenous Pitocin was initiated immediately and post delivery bleeding was easily controlled. Inspection of the vaginal introitus showed a superficial second-degree perineal laceration which was repaired with 2-0 chromic in the usual manner. Sponge, needle, and instrument counts were correct at the end of the case and mother and baby tolerated the delivery process well. Baby 1: Infant gender: Female Presentation: vertex Position: Right Occiput Anterior Placenta delivery description: Spontaneous Cord Vessel Description: 3 Vessels score (1 min): 8 score (5 min): 9 weight: 7 lb 11.494 oz Plan for aftercare: Routine care
[2023-07-04] MEDS: IBUPROFEN 600 MG TABLET PO (06:29)
[2023-07-04] MEDS: ACETAMINOPHEN 325 MG TABLET 650 MG PO (06:30)
[2023-07-04 06:51] LABS: Add Manual Diff / Slide Review NO; Basophils Absolute Auto 0 /uL (0-100); Basophils Percent Auto 0.2 % (0-2); Eosinophils Absolute Auto 100 /uL (0-450); Eosinophils Percent Auto 0.4 % (2-4); Hematocrit 34.5 % (36-46); Hemoglobin 11.7 g/dL (12.0-16.0); Lymphocytes Absolute Auto 3200 /uL (1100-4500); Lymphocytes Percent Auto 22.4 % (25-40); Mean Corpuscular HGB Conc 33.8 % (30-36); Mean Corpuscular Hemoglobin 29.2 PG (26-34); Mean Corpuscular Volume 86.2 fL (80-100); Monocytes Absolute Auto 700 /uL (0-900); Monocytes Percent Auto 4.9 % (3-14); Neutrophils Absolute Auto 10300 /uL (1500-7000); Neutrophils Percent Auto 72.1 % (50-75); Platelet Count 264 X10^3/uL (150-400); Red Cell Distribution Width 14.1 % (11.6-14.8); White Blood Cell Count 14.3 X10^3/uL (4.5-11.0)
[2023-07-04] MEDS: DOCUSATE 100 MG CAPSULE PO (09:09)
--- NOTE | 2023-07-04 14:14 | PM.OBDS.1 ---
Discharge Providers Provider Date of admission: 07/03/23 07:02 Discharge Date: 07/04/23 Primary care physician: Maury Sarah MD Consults: 07/03/23 07:49 Consult to Anesthesiology Urgent Comment: Consulting Provider: Anesthesiologist Reason for consultation: Epidural 07/04/23 20:14 Consult to Inventory Associate And Driver Routine Comment: Discharge provider: Jordan Mg MD Summary Hospital Course Date Patient Seen: 07/04/23 Time Patient Seen: 14:14 Diagnoses: Intrauterine gestation, 40+ 6 weeks, delivered by spontaneous vaginal Rh-negative status Hospital Course: Cassy was admitted on the morning of 07/03/2023 and on the evening of 07/03/2023 delivered spontaneously a viable female infant with Apgars of 9/9 and a weight of 3501 g (7 lb 11.5 oz). Following delivery both mother and baby have done extremely well with the mother experiencing prompt return of bowel and bladder function, she is ambulating independently, tolerating regular diet, and her pain is well controlled with oral pain medications. She is discharged now in an afebrile normotensive condition after counseling regarding precautionary symptoms, limitations of activity, medications, and plans for follow-up which will be in 6 weeks. Medications at discharge will include resumption of all antepartum medications and she will use [id number] Tylenol and/or ibuprofen for pain relief. Peripartum Data Infant Delivery Method: Natural Vaginal Laceration Description: Perineal - 2nd Degree Episiotomy description: None Procedures: Continuous lumbar epidural anesthesia Spontaneous vaginal complications: none [place] 1: Gender: Female Disposition of : home Status at Discharge Cognitive/behavioral status at discharge: oriented Functional status at discharge: independent ambulation Overall status at discharge: patient is progressing back to baseline Time Spent with Patient Time attestation: Total time spent providing and/or coordinating discharge services: Time spent: Less than 30 minutes Objective Labs 07/04/23 06:13 Labs: Laboratory Results - last 24 hr 07/04/23 06:13 WBC 14.3 H RBC 4.00 Hgb 11.7 L Hct 34.5 L MCV 86.2 MCH 29.2 MCHC 33.8 RDW 14.1 Plt Count 264 Neut % (Auto) 72.1 Lymph % (Auto) 22.4 L [place] % (Auto) 4.9 Eos % (Auto) 0.4 L Baso % (Auto) 0.2 Neut # (Auto) 68092 H Lymph # (Auto) 3200 [place] # (Auto) 700 Eos # (Auto) 100 Baso # (Auto) 0 Exam Const General: cooperative and comfortable Nutritional Appearance: average body habitus Orientation: alert and oriented x3 HENMT Head: normal to inspection, atraumatic and abrasion Ears: hearing grossly normal bilaterally Face and sinus: face symmetric Eyes General: appearance normal, both eyes and all related structures Conjunctivae: conjunctivae normal Sclera: sclerae normal EOM: EOM intact bilaterally Neck Neck: normal visual inspection Resp Effort & Inspection: normal respiratory effort and able to speak in complete sentences Auscultation: clear to auscultation bilaterally Cardio Rate: regular rate Rhythm: regular rhythm Heart Sounds: S1 normal, S2 normal and no murmurs GI Inspection: normal to inspection Palpation: soft and no hepatosplenomegaly External Female Exam: other (No significant bleeding noted) Extrem General: no calf tenderness Psych Appearance: grossly normal Mental Status: mental status grossly normal Speech and Movement: speech and movement normal Mood: congruent mood Affect: normal affect Attitude: cooperative Thought Process: normal Thought Content: normal Judgment: judgment good Discharge Plan Discharge Plan Patient Disposition: Home Provider Discharge Comment: Please review the written instructions you received when you were discharged from the hospital. Your follow-up appointment will be scheduled for 6 weeks after delivery and I look forward to seeing you then. If however in the meanwhile you have any questions, concerns, or problems, please contact me either through the office phone at [phone], or via the patient portal. Discharge orders & Medications Prescriptions: Continued vit-ferrous sulfat-FA 27 mg iron- 0.8 mg tablet PO Fergon 225 mg (27 mg iron) tablet 225 mg PO DAILY calcium carbonate [Tums] 200 mg calcium (500 mg) tablet,chewable 200 mg PO QID carica papaya Tablet,Chewable PO DAILY Follow up/Referrals: Maury Sarah MD [Primary Care Provider] - Jordan Mg MD [Physician] - (Thr, July at 1:15 PM check in, appointment at 1:30 PM with .) Discharge Health Status Multidrug resistant organism: No MDRO Diet/Activity/Treatments Diet: Diet as Tolerated Activity: As tolerated Other treatments: [id number] Tylenol and/or ibuprofen may be used for pain relief. [id number] stool softeners and/or MiraLax may be used as needed for constipation. Skin/Wound/Dressing Care Report to your healthcare provider any signs of infection, such as:: chills, fever, increased pain, unusual drainage and unusual redness Dressing: N/A Visit Report/Discharge Packet Instructions: DI for Labor and Delivery, Vaginal , DI for and Nipple Soreness Discharge Data Primary Care Provider: Maury Sarah
== END 2023-07-04 17:27 | disposition home or self-care (01) | DRG 560 ==
PROVIDERS: Admitting Provider Obstetrics & Gynecology; PCP Family Medicine; Referring Provider Obstetrics & Gynecology; Visit Provider Obstetrics & Gynecology
DX: O48.0 Post-term pregnancy (principal); O70.1 Second degree perineal laceration during delivery; Z3A.40 40 weeks gestation of pregnancy; Z37.0 Single live birth; Z67.11 Type A blood, Rh negative; O36.0130 Maternal care for anti-D [Rh] antibodies, third trimester, not applicable or unspecified; O99.02 Anemia complicating childbirth; D64.89 Other specified anemias
CPT/HCPCS: 36415; 59050; 59409; 85025; 86850; 86870; 86900; 86901; G0379; J2590